=== PATIENT | male | born 1985 | race Two or more races ===

== ENCOUNTER 2019-02-21 00:38 | Emergency (ER) | payer SELFPAY ==
[~2019-02-21] VITALS: Ht 170.2 cm; Wt 102.3 kg
[2019-02-21] MEDS ORDERED: DiphenhydrAMINE HCL 50 MG/ML VIAL IM ONE (03:45)
[2019-02-21] MEDS ORDERED: NAPHAZOLINE/PHENIR 0.025-0.3% 15 ML OPHTHALMIC SOLUTION OS ONE (03:45)
[2019-02-21] MEDS ORDERED: GENTAMICIN SULFATE 0.3% OPHTHALMIC SOLUTION 5 ML OS ONE (03:45)
[2019-02-21 03:46] VITALS: BP 140/82
== END 2019-02-21 04:27 | disposition home or self-care (01) ==
LOC: EMS 00:41
DX: H10.13 Acute atopic conjunctivitis, bilateral (principal)
CPT/HCPCS: 96372; 99283; J1200